=== PATIENT | male | born 1965 | race Caucasian/White ===

== ENCOUNTER 2018-05-24 16:45 | Emergency (ER) | payer OTHER ==
[~2018-05-24] VITALS: Ht 177.8 cm; Wt 107.7 kg
[2018-05-24 19:51] VITALS: BP 143/88
== END 2018-05-24 19:52 | disposition home or self-care (01) ==
LOC: EME 16:45
PROC: 0HQFXZZ Repair Right Hand Skin, External Approach (ICD-10-PCS; principal; 2018-05-24)
DX: S61.210A Laceration without foreign body of right index finger without damage to nail, initial encounter (principal); S61.212A Laceration without foreign body of right middle finger without damage to nail, initial encounter; W23.0XXA Caught, crushed, jammed, or pinched between moving objects, initial encounter
CPT/HCPCS: 99281; 99284